=== PATIENT | female | born 1980 | race Caucasian/White ===

== ENCOUNTER 2017-05-12 11:39 | Inpatient (IN) | payer MEDICAID ==
[~2017-05-12] VITALS: Ht 157.5 cm; Wt 90.0 kg
[2017-05-12] VITALS (7 sets, daily range): BP systolic 121–134; BP diastolic 71–95
[2017-05-12 13:30] LABS: PLATELET COUNT 353 x10^3mcL (130-400); RED CELL DISTRIBUTION WIDTH 12.1 % (11.5-14.5)
[2017-05-12 13:37] LABS: CALCIUM 8.8 mg/dL (8.5-10.1); CARBON DIOXIDE 22.6 mmol/L (21-32); CHLORIDE SERUM 98 mmol/L (98-107); CREATININE SERUM 0.7 mg/dL (0.6-1.0); GFR1 > 60 mL/min; GLUCOSE SERUM 137 mg/dL (74-106); POTASSIUM SERUM 3.1 mmol/L (3.5-5.1); SODIUM SERUM 136 mmol/L (136-145)
[2017-05-12 13:41] LABS: ALBUMIN 4.2 g/dL (3.4-5.0); ALKALINE PHOSPHATASE 87 U/L (46-116); ALT/SGPT 44 U/L (14-59); AST/SGOT 18 U/L (15-37); BILIRUBIN TOTAL 0.97 mg/dL (0.20-1.00)
[2017-05-12 13:48] LABS: TOTAL PROTEIN, SERUM 8.5 g/dL (6.4-8.2)
[2017-05-12 13:54] LABS: BAND NEUTROPHIL 26 % (0-10); BASOPHIL 0 % (0-2); MONOCYTE 2 % (0-7); SEGMENTED NEUTROPHILS 65 % (37-75)
[2017-05-12 13:55] LABS: PLATELET MORPHOLOGY PLATELETS INCREASED
[2017-05-12 15:06] LABS: microscopic required? NO
[2017-05-12 15:45] LABS: APPEARANCE CSF TURBID; COLOR CSF MILKY
[2017-05-12 15:47] LABS: WBC CSF 8170 /cumm (0-5)
[2017-05-12 15:48] LABS: LYMPHOCYTE CSF 0 % (40-80); MONOCYTE CSF 1 %; RBC CSF 1 /cumm (0)
[2017-05-12 16:03] LABS: TOTAL PROTEIN CSF 201.5 mg/dL (15-45)
[2017-05-12 16:05] LABS: UA SPECIFIC GRAVITY 1.015 (1.005-1.035); urine erythrocyte NEGATIVE (NEGATIVE)
[2017-05-12 16:17] LABS: AMPHETAMINE QUAL UR NONE DETECTED (NEG <=1000)
[2017-05-12 16:27] LABS: T3 TOTAL 0.96 ng/mL
[2017-05-12 16:45] LABS: FREE T4 1.29 ng/dL (0.76-1.46); FREE THYROXINE INDEX 3.7 ug/dL (1.4-4.5); T4(THYROXINE) 10.9 ug/dL (4.7-13.3)
[2017-05-12 17:08] LABS: CHOLESTEROL/HDL RATIO 4.5; MAGNESIUM 1.5 mg/dL (1.8-2.4); PHOSPHOROUS 3.2 mg/dL (2.5-4.9)
[2017-05-13] VITALS (17 sets, daily range): BP systolic 97–131; BP diastolic 46–79
[2017-05-13 05:24] LABS: BASOPHIL % 0.2 % (0-2); PLATELET COUNT 320 x10^3mcL (130-400); RED CELL DISTRIBUTION WIDTH 13.5 % (11.5-14.5)
[2017-05-13 05:45] LABS: CALCIUM 8.4 mg/dL (8.5-10.1); CARBON DIOXIDE 22.5 mmol/L (21-32); CHLORIDE SERUM 103 mmol/L (98-107); CREATININE SERUM 0.6 mg/dL (0.6-1.0); GFR1 > 60 mL/min; GLUCOSE SERUM 171 mg/dL (74-106); MAGNESIUM 1.7 mg/dL (1.8-2.4); PHOSPHOROUS 2.1 mg/dL (2.5-4.9); POTASSIUM SERUM 3.4 mmol/L (3.5-5.1); SODIUM SERUM 138 mmol/L (136-145)
[2017-05-14] VITALS (10 sets, daily range): BP systolic 112–141; BP diastolic 51–93
[2017-05-14 05:19] LABS: PLATELET COUNT 296 x10^3mcL (130-400); RED CELL DISTRIBUTION WIDTH 13.8 % (11.5-14.5)
[2017-05-14 05:37] LABS: CALCIUM 8.4 mg/dL (8.5-10.1); CARBON DIOXIDE 24.4 mmol/L (21-32); CHLORIDE SERUM 110 mmol/L (98-107); CREATININE SERUM 0.6 mg/dL (0.6-1.0); GFR1 > 60 mL/min; GLUCOSE SERUM 173 mg/dL (74-106); MAGNESIUM 2.5 mg/dL (1.8-2.4); PHOSPHOROUS 1.9 mg/dL (2.5-4.9); POTASSIUM SERUM 3.7 mmol/L (3.5-5.1); SODIUM SERUM 144 mmol/L (136-145)
[2017-05-14 07:20] LABS: BAND NEUTROPHIL 8 % (0-10); BASOPHIL 0 % (0-2); SEGMENTED NEUTROPHILS 88 % (37-75)
[2017-05-14 07:21] LABS: PLATELET MORPHOLOGY PLATELETS NORMAL; rbc morphology (normal/abnorm) NORMAL (NORMAL)
[2017-05-15] VITALS (7 sets, daily range): BP systolic 124–166; BP diastolic 71–90
[2017-05-15 05:24] LABS: PLATELET COUNT 334 x10^3mcL (130-400); RED CELL DISTRIBUTION WIDTH 13.2 % (11.5-14.5)
[2017-05-15 05:25] LABS: BASOPHIL % 0 % (0-2)
[2017-05-15 05:42] LABS: CALCIUM 8.4 mg/dL (8.5-10.1); CARBON DIOXIDE 21.8 mmol/L (21-32); CHLORIDE SERUM 105 mmol/L (98-107); CREATININE SERUM 0.5 mg/dL (0.6-1.0); GFR1 > 60 mL/min; GLUCOSE SERUM 174 mg/dL (74-106); MAGNESIUM 2.2 mg/dL (1.8-2.4); PHOSPHOROUS 2.8 mg/dL (2.5-4.9); POTASSIUM SERUM 3.9 mmol/L (3.5-5.1); SODIUM SERUM 139 mmol/L (136-145)
[2017-05-15] MEDS ORDERED: SYNTHROID0.075 MG PO (13:07)
[2017-05-16 05:29] VITALS: BP 165/81
[2017-05-16 07:40] LABS: PLATELET COUNT 357 x10^3mcL (130-400); RED CELL DISTRIBUTION WIDTH 13.1 % (11.5-14.5)
[2017-05-16 07:47] LABS: BASOPHIL % 0 % (0-2)
[2017-05-16 08:15] LABS: CARBON DIOXIDE 21.6 mmol/L (21-32); CHLORIDE SERUM 104 mmol/L (98-107); CREATININE SERUM 0.6 mg/dL (0.6-1.0); GFR1 > 60 mL/min; GLUCOSE SERUM 187 mg/dL (74-106); MAGNESIUM 2.3 mg/dL (1.8-2.4); PHOSPHOROUS 3.6 mg/dL (2.5-4.9); POTASSIUM SERUM 3.8 mmol/L (3.5-5.1); SODIUM SERUM 140 mmol/L (136-145)
[2017-05-16 11:08] VITALS: BP 157/88
[2017-05-16 15:31] VITALS: BP 166/81
[2017-05-16 18:50] VITALS: BP 144/78
[2017-05-16 20:52] VITALS: BP 131/76
[2017-05-17 05:35] VITALS: BP 12/77
[2017-05-17 08:22] VITALS: BP 122/76
[2017-05-17 12:21] VITALS: BP 127/77
[2017-05-17 16:20] VITALS: BP 115/82
[2017-05-17 21:25] VITALS: Ht 157.5 cm; Wt 90.0 kg
[2017-05-17 21:48] VITALS: BP 115/73
[2017-05-18 06:35] VITALS: BP 111/65
[2017-05-18 11:13] VITALS: BP 112/77
[2017-05-18 14:14] VITALS: BP 107/65
[2017-05-18 16:48] VITALS: BP 107/65
[2017-05-18 18:35] VITALS: BP 103/66
[2017-05-18 22:01] VITALS: BP 115/68
[2017-05-19 06:05] VITALS: BP 106/76
[2017-05-19 09:00] VITALS: BP 107/67
[2017-05-19 11:57] VITALS: BP 140/65
[2017-05-19 12:10] VITALS: BP 101/73
[2017-05-19 17:44] VITALS: BP 104/61
[2017-05-19 21:44] VITALS: BP 98/64
[2017-05-20 05:46] VITALS: BP 93/61
[2017-05-20 09:55] VITALS: BP 108/69
[2017-05-20 13:00] VITALS: BP 109/69
[2017-05-20 17:25] VITALS: BP 111/71
[2017-05-20 22:25] VITALS: BP 110/72
[2017-05-21 05:52] VITALS: BP 101/65
[2017-05-21 09:17] VITALS: BP 102/62
[2017-05-21 17:26] VITALS: BP 109/73
[2017-05-21 20:52] VITALS: BP 113/75
[2017-05-22 05:19] VITALS: BP 110/69
[2017-05-22 09:29] VITALS: BP 101/69
[2017-05-22 16:23] VITALS: BP 112/80
[2017-05-22 21:16] VITALS: BP 109/70
[2017-05-23 05:25] VITALS: BP 109/71
[2017-05-23 10:25] VITALS: BP 108/77
[2017-05-23 18:26] VITALS: BP 119/77
[2017-05-23 21:12] VITALS: BP 116/75
[2017-05-24 06:00] VITALS: BP 104/66
[2017-05-24 08:51] VITALS: BP 105/70
[2017-05-24 13:04] VITALS: BP 132/72
[2017-05-24 17:35] VITALS: BP 120/80
[2017-05-24 20:43] VITALS: BP 105/71
[2017-05-25 05:35] VITALS: BP 109/76
[2017-05-25 05:57] VITALS: BP 151/68
[2017-05-25 08:19] LABS: ALBUMIN 3.6 g/dL (3.4-5.0); CALCIUM 9.2 mg/dL (8.5-10.1); CARBON DIOXIDE 20.8 mmol/L (21-32); CHLORIDE SERUM 102 mmol/L (98-107); CREATININE SERUM 0.6 mg/dL (0.6-1.0); GFR1 > 60 mL/min; GLUCOSE SERUM 95 mg/dL (74-106); POTASSIUM SERUM 3.4 mmol/L (3.5-5.1); SODIUM SERUM 137 mmol/L (136-145)
[2017-05-25 09:41] VITALS: BP 106/70
[2017-05-25 12:28] LABS: PLATELET COUNT 389 x10^3mcL (130-400); RED CELL DISTRIBUTION WIDTH 13.5 % (11.5-14.5)
[2017-05-25 12:30] LABS: BASOPHIL % 0 % (0-2)
[2017-05-25 16:56] VITALS: BP 113/63
[2017-05-25 20:36] VITALS: BP 102/70
[2017-05-26 05:05] VITALS: BP 131/88
[2017-05-26 07:12] LABS: BASOPHIL % 0.5 % (0-2); RED CELL DISTRIBUTION WIDTH 13.4 % (11.5-14.5)
[2017-05-26 07:20] LABS: PLATELET COUNT 456 x10^3mcL (130-400)
[2017-05-26 07:23] LABS: CALCIUM 9.2 mg/dL (8.5-10.1); CARBON DIOXIDE 24.3 mmol/L (21-32); CHLORIDE SERUM 101 mmol/L (98-107); CREATININE SERUM 0.6 mg/dL (0.6-1.0); GFR1 > 60 mL/min; GLUCOSE SERUM 90 mg/dL (74-106); POTASSIUM SERUM 3.2 mmol/L (3.5-5.1); SODIUM SERUM 138 mmol/L (136-145)
[2017-05-26 09:30] VITALS: BP 111/69
[2017-05-26 13:08] VITALS: BP 119/79
[2017-05-26] MEDS ORDERED: GLU500 PO (13:26)
[2017-05-26] MEDS ORDERED: HURS MT (13:27)
[2017-05-26] MEDS ORDERED: THERA TABS1 TAB PO (13:28)
[2017-05-26] MEDS ORDERED: VAS TOP (13:29)
[2017-05-26] MEDS ORDERED: MEDROL DOSEPAK4 MG PO (13:30)
[2017-05-26 14:10] VITALS: BP 119/79
== END 2017-05-26 14:42 | disposition home or self-care (01) | DRG 720 ==
LOC: ED 11:39 → DU 14:44 → IC 14:44 → DU 05-15 14:46 → MU 05-18 15:34 → DU 05-18 22:08 → MU 05-20 14:22
PROVIDERS: Emergency Medicine; Family Medicine; Family Medicine Sports Medicine; Student in an Organized Health Care Education/Training Program
PROC: 5A1945Z Respiratory Ventilation, 24-96 Consecutive Hours (ICD-10-PCS; principal; 2017-05-12)
PROC: 0BH17EZ Insertion of Endotracheal Airway into Trachea, Via Natural or Artificial Opening (ICD-10-PCS; 2017-05-12)
PROC: 009U3ZX Drainage of Spinal Canal, Percutaneous Approach, Diagnostic (ICD-10-PCS; 2017-05-12)
PROC: 05HM33Z Insertion of Infusion Device into Right Internal Jugular Vein, Percutaneous Approach (ICD-10-PCS; 2017-05-12)
PROC: B543ZZA Ultrasonography of Right Jugular Veins, Guidance (ICD-10-PCS; 2017-05-12)
DX: A41.9 Sepsis, unspecified organism (principal); J96.00 Acute respiratory failure, unspecified whether with hypoxia or hypercapnia; N17.0 Acute kidney failure with tubular necrosis; R65.21 Severe sepsis with septic shock; G00.1 Pneumococcal meningitis; E83.42 Hypomagnesemia; E83.39 Other disorders of phosphorus metabolism; E87.6 Hypokalemia; R73.03 Prediabetes; D64.9 Anemia, unspecified; E03.9 Hypothyroidism, unspecified; E78.5 Hyperlipidemia, unspecified; E66.9 Obesity, unspecified; Z68.36 Body mass index [BMI] 36.0-36.9, adult
CPT/HCPCS: 36556; 36600; 82962; 83880; 84439; 86788; 86789; 87804; 97110-GP; 97116-GP; A4628; J0133; J0330; J0696; J1100; J1200; J1642; J1644; J1815; J2001; J2060; J2250; J2270; J2405; J2704; J2930; J3370; J3475; J3480; J3490; J7030; J7050; J7620; Q0092